=== PATIENT | male | born 1995 | race Caucasian/White ===

== ENCOUNTER 2023-02-15 20:17 | Emergency (ER) | payer OTHER ==
[2023-02-15] MEDS ORDERED: Sodium Chloride 0.9% 10 ML Syringe FLUSH PRN (20:27)
[2023-02-15 21:02] LABS: ESTIMATED GFR 105 mL/min (>60)
[2023-02-15] MEDS ORDERED: Ketorolac 30 MG/ML SDV IVPUSH ONE (21:18)
== END 2023-02-15 22:33 | disposition home or self-care (01) ==
LOC: JD.ED 20:17
DX: R07.89 Other chest pain (principal); F17.210 Nicotine dependence, cigarettes, uncomplicated
CPT/HCPCS: 36415; 71045; 80053; 83735; 83880; 84484; 85025; 85610; 85730; 86140; 93005; 96374; 99285; J1885; 93010; 99284